=== PATIENT | male | born 1995 | race Hispanic/Latino ===

== ENCOUNTER 2018-12-09 23:09 | Emergency (ER) | payer SELFPAY ==
[2018-12-10] MEDS ORDERED: predniSONE 20 MG TAB ONE (00:39)
[2018-12-10] MEDS ORDERED: hydrOXYzine 25 MG TAB ONE (00:39)
== END 2018-12-10 00:46 | disposition home or self-care (01) ==
LOC: ERS 23:09
DX: L23.7 Allergic contact dermatitis due to plants, except food (principal)
CPT/HCPCS: 99283; J7512

== ENCOUNTER 2023-01-07 15:01 | Outpatient (CLI) | payer BC | END 2023-01-07 15:02 | disposition home or self-care (01) | LOC: RAD 15:01 | PROVIDERS: ATTEND Physician Assistant | DX: M25.552 Pain in left hip (principal); M79.9 Soft tissue disorder, unspecified; M86.8X5 Other osteomyelitis, thigh ==